=== PATIENT | male | born 1940 | race Caucasian/White ===

== ENCOUNTER 2017-11-19 07:26 | Emergency (ER) | payer MEDICARE, OTHER ==
[~2017-11-19] VITALS: Ht 175.3 cm; Wt 86.2 kg
[~2017-11-19 07:26] MED LIST: Adult Low Dose81 MG PO; Bupropion HCl150 M2 PO; FENO48 PO; FENO54 PO; Fluocinonide15 GM TP; Keflex500 MG PO; NAPR220 PO; Norco 5-325 Ta1 EACH PO; TAMS.4ER PO
== END 2017-11-19 08:19 | disposition home or self-care (01) ==
LOC: ER 07:26
DX: J06.9 Acute upper respiratory infection, unspecified (principal); E78.00 Pure hypercholesterolemia, unspecified; Z79.899 Other long term (current) drug therapy
CPT/HCPCS: 71046; 99283

== ENCOUNTER → 2018-06-05 | Outpatient (CLI) | payer MEDICARE, OTHER | END | disposition home or self-care (01) | LOC: PLD 08:32 → LAB SHORT 08:32 | DX: C44.519 Basal cell carcinoma of skin of other part of trunk (principal); L81.4 Other melanin hyperpigmentation | CPT/HCPCS: 88305 ==

== ENCOUNTER 2020-08-24 07:04 | Day surgery (SDC) | payer MEDICARE, OTHER ==
[~2020-08-24] VITALS: Ht 172.7 cm; Wt 84.6 kg
[~2020-08-24 07:04] MED LIST changes: +EFUDEX40 GM; +FENOFIBRATE48 MG PO; +FLUOCINONIDE120 GM; +GLUCOSAMINE-CH1 EAC7 PO; +PROBIOTIC1 EA13 PO
--- NOTE | 2020-08-24 08:56 | NUR ---
08/24/20 0856 Diann Sanchez NO SLING SENT HOME PER ORDERS. PT INSTRUCTED TO KEEP HAND UP AND ELEVATED WITH ICE PACK.
== END 2020-08-24 08:50 | disposition home or self-care (01) ==
LOC: ORSCSDS 07:04
PROVIDERS: Orthopaedic Surgery
PROC: 01N50ZZ Release Median Nerve, Open Approach (ICD-10-PCS; principal; 2020-08-24 08:15)
DX: G56.02 Carpal tunnel syndrome, left upper limb (principal); F32.9 Major depressive disorder, single episode, unspecified; Z79.899 Other long term (current) drug therapy
CPT/HCPCS: J0690; J2250; J2704; J3010; J7120

== ENCOUNTER → 2020-11-09 | Outpatient (CLI) | payer MEDICARE, OTHER | END | disposition home or self-care (01) | LOC: LAB 10:02 → LAB SHORT 10:02 | DX: D22.39 Melanocytic nevi of other parts of face (principal); L57.0 Actinic keratosis; L57.8 Other skin changes due to chronic exposure to nonionizing radiation; L70.0 Acne vulgaris; L90.5 Scar conditions and fibrosis of skin | CPT/HCPCS: 88305 ==

== ENCOUNTER → 2021-05-03 | Outpatient (CLI) | payer MEDICARE, OTHER | END | disposition home or self-care (01) | LOC: LAB SHORT 08:44 | DX: D04.39 Carcinoma in situ of skin of other parts of face (principal); L57.0 Actinic keratosis | CPT/HCPCS: 88305 ==

== ENCOUNTER → 2021-11-01 | Outpatient (CLI) | payer MEDICARE, OTHER | END | disposition home or self-care (01) | LOC: LAB SHORT 07:36 → PLD 07:36 | DX: L57.0 Actinic keratosis (principal); D03.59 Melanoma in situ of other part of trunk | CPT/HCPCS: 88305; 88313 ==

== ENCOUNTER → 2021-11-09 | Outpatient (CLI) | payer MEDICARE, OTHER | END | disposition home or self-care (01) | LOC: LAB SHORT 14:59 | DX: D03.59 Melanoma in situ of other part of trunk (principal) | CPT/HCPCS: 88305 ==

== ENCOUNTER → 2022-05-02 | Outpatient (CLI) | payer MEDICARE, OTHER | LOC: LAB SHORT 08:00 → PLD 08:00 | DX: D48.5 Neoplasm of uncertain behavior of skin (principal) | CPT/HCPCS: 88305 ==

== ENCOUNTER → 2022-06-07 | Outpatient (CLI) | payer MEDICARE, OTHER | END | disposition home or self-care (01) | LOC: LAB SHORT 07:22 | DX: C44.212 Basal cell carcinoma of skin of right ear and external auricular canal (principal) | CPT/HCPCS: 88305 ==

== ENCOUNTER 2022-09-26 10:16 | Emergency (ER) | payer MEDICARE, OTHER ==
[~2022-09-26] VITALS: Ht 172.7 cm; Wt 74.4 kg
[2022-09-26 11:06] LABS: BASOPHILS ABSOLUTE AUTO 0.07 K/mm3 (0.00-0.23); BASOPHILS PERCENT AUTO 1 % (0-2); EOSINOPHILS ABSOLUTE AUTO 0.15 K/mm3 (0.00-0.68); EOSINOPHILS PERCENT AUTO 2 % (0-6); Hematocrit 50.6 % (37.0-53.0); Hemoglobin 17.7 g/dL (13.5-17.5); IMMATURE GRAN ABSOLUTE AUTO 0.02 K/mm3 (0.00-0.10); IMMATURE GRAN PERCENT AUTO 0 % (0-1); LYMPHOCYTES ABSOLUTE AUTO 1.43 K/mm3 (0.84-5.20); LYMPHOCYTES PERCENT AUTO 17 % (21-46); MONOCYTES ABSOLUTE AUTO 0.65 K/mm3 (0.16-1.47); MONOCYTES PERCENT AUTO 8 % (4-13); Mean Corpuscular HGB 32.1 pg (26.0-34.0); Mean Corpuscular Volume 92 fL (80-100); Mean Platelet Volume 9.6 fL (9.1-12.4); NEUTROPHILS ABSOLUTE AUTO 5.98 K/mm3 (1.96-9.15); NEUTROPHILS PERCENT AUTO 72 % (41-73); Platelet Count 275 K/mm3 (150-400); RDW Coefficient Variation 12.8 % (11.7-14.2); RDW Standard Deviation 43.1 fL (35.1-46.3); Red Blood Cell Count 5.51 M/mm3 (4.30-5.90)
[2022-09-26] MEDS ORDERED: BUPROPION HCL XL 300 (11:15)
[2022-09-26] MEDS ORDERED: METO25ER (11:17)
[2022-09-26 12:06] LABS: Alanine Aminotransfer (ALT/SGP 25 U/L (12-78); Albumin, Blood 3.7 g/dL (3.4-5.0); Albumin/Globulin Ratio 1.1 (0.8-1.8); Alk Phos 93 U/L (50-136); Anion Gap Unable to Calculate mmol/L (6-16); Aspartate Aminotrans (AST/SGOT 23 U/L (12-37); Bilirubin, Total 0.6 mg/dL (0.1-1.0); Blood Urea Nitrogen 16 mg/dL (8-24); Bun/Creatinine Ratio 18.3 (12.0-20.0); CO2, Blood 27 mmol/L (21-32); Calcium, Blood 8.8 mg/dL (8.5-10.1); Chloride, Blood 108 mmol/L (98-108); Creatinine, Blood 0.88 mg/dL (0.60-1.20); Globulin, Blood 3.5 g/dL (2.2-4.0); Glomerular Filtration Rate 86 (60-); Glucose, Blood 114 mg/dL (70-99); Potassium, Blood 4.2 mmol/L (3.5-5.5); Sodium, Blood 134 mmol/L (136-145); Total Protein, Blood 7.2 g/dL (6.4-8.2)
== END 2022-09-26 13:21 | disposition home or self-care (01) ==
LOC: ER 10:16
PROVIDERS: Physician Assistant
DX: R41.0 Disorientation, unspecified (principal); E87.1 Hypo-osmolality and hyponatremia; Z79.899 Other long term (current) drug therapy; E78.00 Pure hypercholesterolemia, unspecified; F17.200 Nicotine dependence, unspecified, uncomplicated
CPT/HCPCS: 36415; 70450; 80053; 85025; 93005; 93010; 99285-25

== ENCOUNTER 2022-10-07 08:16 | Observation (INO) | payer MEDICARE, OTHER ==
[~2022-10-07] VITALS: Ht 175.3 cm; Wt 75.1 kg
[~2022-10-07 08:16] MED LIST changes: +BUPROPION HCL XL 300; +METO25ER PO
[2022-10-07 08:59] LABS: BASOPHILS ABSOLUTE AUTO 0.04 K/mm3 (0.00-0.23); BASOPHILS PERCENT AUTO 1 % (0-2); EOSINOPHILS ABSOLUTE AUTO 0.22 K/mm3 (0.00-0.68); EOSINOPHILS PERCENT AUTO 3 % (0-6); Hematocrit 46.2 % (37.0-53.0); Hemoglobin 16.5 g/dL (13.5-17.5); IMMATURE GRAN ABSOLUTE AUTO 0.03 K/mm3 (0.00-0.10); IMMATURE GRAN PERCENT AUTO 0 % (0-1); LYMPHOCYTES ABSOLUTE AUTO 1.25 K/mm3 (0.84-5.20); LYMPHOCYTES PERCENT AUTO 16 % (21-46); MONOCYTES ABSOLUTE AUTO 0.76 K/mm3 (0.16-1.47); MONOCYTES PERCENT AUTO 10 % (4-13); Mean Corpuscular HGB 32.2 pg (26.0-34.0); Mean Corpuscular HGB Conc 35.7 g/dL (31.5-36.5); Mean Corpuscular Volume 90 fL (80-100); Mean Platelet Volume 10.2 fL (9.1-12.4); NEUTROPHILS ABSOLUTE AUTO 5.61 K/mm3 (1.96-9.15); NEUTROPHILS PERCENT AUTO 71 % (41-73); Platelet Count 240 K/mm3 (150-400); RDW Coefficient Variation 12.8 % (11.7-14.2); RDW Standard Deviation 42.2 fL (35.1-46.3); Red Blood Cell Count 5.13 M/mm3 (4.30-5.90); White Blood Cell Count 7.91 K/mm3 (4.00-11.30)
[2022-10-07] MEDS ORDERED: VITAMIN B12 PO (09:13)
[2022-10-07] MEDS ORDERED: ASPI325 PO (09:13)
[2022-10-07 09:17] LABS: International Normalized Ratio 1.02; Phosphorus, Blood 3.4 mg/dL (2.5-4.9); Prothrombin Time Results 10.7 Sec (9.7-11.5)
[2022-10-07 09:18] LABS: Salicylate 16.5 mg/dL (2.8-20.0)
[2022-10-07 09:21] LABS: Acetaminophen, Random <2.0 ug/mL (10.0-30.0); Alanine Aminotransfer (ALT/SGP 22 U/L (12-78); Albumin, Blood 3.2 g/dL (3.4-5.0); Albumin/Globulin Ratio 0.9 (0.8-1.8); Alk Phos 93 U/L (50-136); Anion Gap 0 mmol/L (6-16); Aspartate Aminotrans (AST/SGOT 15 U/L (12-37); Bilirubin, Total 0.6 mg/dL (0.1-1.0); Blood Urea Nitrogen 21 mg/dL (8-24); Bun/Creatinine Ratio 23.6 (12.0-20.0); CO2, Blood 24 mmol/L (21-32); Calcium, Blood 8.8 mg/dL (8.5-10.1); Chloride, Blood 109 mmol/L (98-108); Creatinine, Blood 0.89 mg/dL (0.60-1.20); Globulin, Blood 3.7 g/dL (2.2-4.0); Glomerular Filtration Rate 86 (60-); Glucose, Blood 120 mg/dL (70-99); Potassium, Blood 4.6 mmol/L (3.5-5.5); Sodium, Blood 133 mmol/L (136-145); Total Protein, Blood 6.9 g/dL (6.4-8.2)
[2022-10-07 09:23] LABS: Base Excess Venous -2.5 mmol/L; Bicarbonate Venous 23.3 mmol/L (24.0-30.0); PCO2 Venous 31.3 mmHg (38-42); pH Blood Venous 7.45 (7.34-7.37)
[2022-10-07 12:29] LABS: Bun/Creatinine Ratio 26.7 (12.0-20.0); Calcium, Blood 8.3 mg/dL (8.5-10.1); Creatinine, Blood 0.75 mg/dL (0.60-1.20); Potassium, Blood 4.3 mmol/L (3.5-5.5)
[2022-10-07] MEDS ORDERED: QUET25 PO (14:19)
[2022-10-07 17:17] LABS: Base Excess Venous -1.1 mmol/L; Bicarbonate Venous 23.7 mmol/L (24.0-30.0); PCO2 Venous 37.8 mmHg (38-42)
[2022-10-07 18:01] VITALS: BP 121/77
[2022-10-07 19:40] VITALS: BP 121/62
[2022-10-08 01:52] VITALS: BP 151/87
[2022-10-08 01:53] LABS: U Amphetamine Screen Not Detected; U Barbituate Screen Not Detected; U Benzodiazapine Screen DETECTED; U Buprenorphine Screen Not Detected; U Cannabinoids Screen Not Detected; U Cocaine Screen Not Detected; U Methadone Screen Not Detected; U Methamphetamine Screen Not Detected; U Opiates Screen Not Detected; U Oxycodone Screen Not Detected; U Phencyclidine Screen Not Detected; U Propoxyphene Screen Not Detected
--- NOTE | 2022-10-08 04:55 | NUR ---
SUMMARY: PATIENT ADMITTED AROUND SHIFT CHANGE. COMPLETED ASSESSMENT. PATIENT AOX1. VERY CONFUSED. ATTEMPTING TO GET OUT OF BED FREQUENTLY. PATIENT ADMITTED FOR OVERDOSE ON HOME MEDICATIONS. PATIENT VERY WEAK UNABLE TO HOLD HIMSELF UP TO SIT AT BEDSIDE TO VOID. BLADDERSCANNED THROUGHOUT NIGHT. AROUND 2AM BLADDER SCANED SHOWED ABOUT 470CC URINE. RECIEVED ORDER 1X STRAIGHT CATH. REMOVED 400 CC THAT WAS MEASURED. PATIENT WAS AGITATED THROUGHOUT CATH AND IT REQUIRED 3 STAFF MEMBERS TO COMPLETE. GAVE ATIVAN 3 TIMES PATIENT STILL TRYING TO GET UP SO PLACED A BIA VEST RESTRAINT ON PATIENT. RECIEVED ORDER FOR RESTRAINT. PATIENT HAVING HALLUCINATIONS. POISON CONTROL CALLED TO CHECK ON PATIENT LABS. REQUESTED REPEAT EKG FOR THIS MORNING. PATIENT SON CALLED TO CHECK IN.
--- NOTE | 2022-10-08 07:46 | NUR ---
GAVE PT ONE DOSE OF 1MG ATIVAN. PT CURRENTLY HAS SITTER HE IS COMBATIVE, TRYING TO CRAWL OUT OF BED, AND NON COMPLIENT WITH CARE. 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 CAMERA ON PT FOR EXTRA SAFETY. SON CURRENTLY IN ROOM.
[2022-10-08 17:04] VITALS: BP 152/107
--- NOTE | 2022-10-08 20:24 | NUR ---
SHIFT SUMMARY: PT ORIENTED TO SELF AND FAMILY AT TIMES. PT EXTREMELY AGITATED THIS SHIFT. BIA ATTEMPTED MULTIPLE TIMES. PT PUT BIA OVER HEAD WITH XLARGE AND LARGE. MEDIUM BIA CURRENTLY ON PT. 1MG IV ATIVAN GIVEN THIS SHIFT. PT DID NOT RELAX WITH ANY MEDICATION. CALLED DR. GARRETT WHO ORDERED ONE TIME 5MG IM HALDOL. PT CONTINUED TO ATTEMPT OUT OF BED. FAMILY WITH PT SOME TIME THIS SHIFT. PT WOULD SOMTIMES BE CALMER WITH THEM AND MORE ANXIOUS AT OTHER TIMES. IV IN RFA LEAKED. NEW IV PLACED IN LAC IN HOPES OF HAVING MRI WITH CONTRAST. PT RECEIVED NO CONTRAST BUT WOULD NOT STAY STILL ENOUGH FOR CONTRAST. WILL ATTEMPT TO ANALYZE NO CONTRAST. PT REMAINS IN BIA AT THIS TIME THAT EXPIRES AT 0400. CALL LIGHT IN REACH. BED IN LOWEST POSITION. 1:1 SITTER IN ROOM WITH PT. REPORT GIVEN TO ONCOMING NURSE.
[2022-10-08 20:56] VITALS: BP 141/91
--- NOTE | 2022-10-09 08:00 | NUR ---
pt awake and attempting to get oob and go for a walk, not redirectable, becomes angry when legs placed back in bed, he was changed, and repositioned a number of times, a/o to self only, posy vest in place, lungs are clear t/o, resp even and unlabored, no cough noted, hrr, no edema noted, ppp+1, cap refill <3 sec, vs stable, afebrile, iv to lfa, site is clear and patent, btx4, abd flat soft nontender, incont of urine, briefs in place, skin c/w/d, maew, very active in bed, [place], call light in reach.
[2022-10-09 08:01] VITALS: BP 166/89
[2022-10-09] MEDS ORDERED: Nicoderm Cq1 EAC1 TOP (14:52)
[2022-10-09] MEDS ORDERED: QUET200 PO (14:52)
[2022-10-09] MEDS ORDERED: Seroquel Xr50 MG PO (14:52)
--- NOTE | 2022-10-09 16:32 | NUR ---
Pt has been discharged to home, went over discharge instructions with son and , they verbalize understanding, iv removed intact, already picked up new meds, left via wheelchair with panel cutter and family in attendence. pt has all his belongings.
== END 2022-10-09 17:05 | disposition home health service (06) ==
LOC: ER 08:16 → MEDS 08:17 → ENPENDDIS 10-09 15:15 → MEDS 10-09 17:05
PROVIDERS: Physician Assistant; ADMIT Internal Medicine
DX: F03.90 Unspecified dementia, unspecified severity, without behavioral disturbance, psychotic disturbance, mood disturbance, and anxiety (principal); T65.91XA Toxic effect of unspecified substance, accidental (unintentional), initial encounter; J44.9 Chronic obstructive pulmonary disease, unspecified; I10 Essential (primary) hypertension; F17.200 Nicotine dependence, unspecified, uncomplicated; R63.4 Abnormal weight loss; J45.909 Unspecified asthma, uncomplicated; N40.0 Benign prostatic hyperplasia without lower urinary tract symptoms; M19.90 Unspecified osteoarthritis, unspecified site
CPT/HCPCS: 36415; 51701; 71045; 80048; 80053; 82803; 82947; 83735; 84100; 85025; 85610; 85730; 93005; 93010; 96361; 96372; 96374; 96375; 96376; 97116; 97162; 97530; 99285-25; A9270; G0378; G0480; J1630; J2060; J7030

== ENCOUNTER 2022-12-05 09:01 | Emergency (ER) | payer MEDICARE, OTHER ==
[~2022-12-05] VITALS: Ht 170.2 cm; Wt 63.5 kg
[~2022-12-05 09:01] MED LIST changes: +AMOCLA875 PO; +ASPI325 PO; +ASPIR 8181 M1 PO; +Budeprion Xl300 MG PO; +MASOPHEN325 M3 PO; +MIRALAX PO; +Nicoderm Cq1 EAC1 TOP; +QUET200 PO; +QUET25 PO; +Seroquel Xr50 MG PO; +VISBIOME 112.51 EACH PO; +VITAMIN B12 PO
[2022-12-05] MEDS ORDERED: HALO2 PO (09:18)
[2022-12-05] MEDS ORDERED: MORP20L PO (09:19)
[2022-12-05] MEDS ORDERED: SULTRIDS PO (09:21)
[2022-12-05] MEDS ORDERED: ONDA4ODT (09:22)
[2022-12-05 10:49] VITALS: BP 134/74
== END 2022-12-05 10:40 | disposition home or self-care (01) ==
LOC: ER 09:01
DX: S01.81XA Laceration without foreign body of other part of head, initial encounter (principal); I10 Essential (primary) hypertension; F17.200 Nicotine dependence, unspecified, uncomplicated; W18.30XA Fall on same level, unspecified, initial encounter; Z79.899 Other long term (current) drug therapy; Z79.82 Long term (current) use of aspirin
CPT/HCPCS: 12011; 99283-25